=== PATIENT | male | born 1965 | race Caucasian/White ===

== ENCOUNTER 2021-06-24 07:41 | Emergency (ER) | payer BC ==
[~2021-06-24] VITALS: Ht 185.4 cm; Wt 113.4 kg
[2021-06-24] MEDS ORDERED: ACETAMINOPHEN 325 MG TAB PO ONE (08:00)
[2021-06-24] MEDS ORDERED: KETOROLAC TROMETHAMINE 30 MG/ML VIAL IM ONE (08:00)
[2021-06-24] MEDS ORDERED: ULTRAM 50MG50 MG PO ×2 (08:12→08:13)
[2021-06-24] MEDS ORDERED: PREDNISONE20 MG PO (08:12)
[2021-06-24] MEDS ORDERED: KETOROLAC TROMETHAMINE 30 MG/ML VIAL ONE (08:15)
[2021-06-24] MEDS ORDERED: ACETAMINOPHEN 325 MG TAB ONE (08:15)
== END 2021-06-24 09:46 | disposition home or self-care (01) ==
LOC: FSED 07:59
DX: S39.012A Strain of muscle, fascia and tendon of lower back, initial encounter (principal); G57.00 Lesion of sciatic nerve, unspecified lower limb; I10 Essential (primary) hypertension; X50.1XXA Overexertion from prolonged static or awkward postures, initial encounter
CPT/HCPCS: 72100; 96372; 99283; J1885